=== PATIENT | female | born 1995 | race American Indian/Alaskan Native ===

== ENCOUNTER 2017-07-07 10:42 | Inpatient (IN) | payer OTHER ==
[2017-07-07] MEDS ORDERED: ZOFRAN IV ONE (11:09)
[2017-07-07] MEDS ORDERED: TORADOL IV ONE (11:09)
[2017-07-07] MEDS ORDERED: DILAUDID IV ONE ×3 (11:09→14:47)
[2017-07-07] MEDS ORDERED: DILAUDID ONE ×2 (11:26→14:51)
--- NOTE | 2017-07-07 11:33 | Emergency Department Report ---
ED Fall HPI - General Chief Complaint: Fall Stated Complaint: LEFT WRIST FRACTURE Time Seen by Provider: 07/07/17 11:01 Source: patient Mode of arrival: Ambulatory Limitations: No Limitations - History of Present Illness Initial Comments: 21-year-old female presents to the hospital status post fall [facility]. Patient ran to her left side. Patient denies LOC. Complains of pain to a whole left side with obvious deformity to left wrist. Patient is right hand dominate. Pain is rated 10/10 in intensity, worse with palpation and movement, and achy in nature. Patient was specifically complains of pain to left wrist, left ankle when L and buttock area and denies head, neck, chest or thoracic pain. - Related Data Home Medications Medication Instructions Recorded Confirmed Last Taken No Known Home Medications [No 07/07/17 07/07/17 Unknown Reported Home Medications] Allergies Allergy/AdvReac Type Severity Reaction Status Date / Time No Known Allergies Allergy Unverified 07/07/17 10:46 ED Review of Systems ROS: Stated complaint: LEFT WRIST FRACTURE Other details as noted in HPI Comment: All other systems reviewed and negative Other: Constitutional: No fevers chills Eyes: No eye pain visual changes ENT: No ear pain or throat pain Neck: Denies pain Respiratory: Denies cough wheezing shortness of breath Cardiovascular: Denies chest pain, palpitations, syncope GI: Denies nausea, vomiting, diarrhea : Denies dysuria Musculoskeletal: as per hpi Skin: Denies rash, lesions, erythema Neurologic: Denies headache, numbness, weakness Psychiatric: Denies suicidal ideation, hallucinations ED Past Medical Hx - Past Medical History Previous Medical History?: No - Surgical History Past Surgical History?: No - Social History Smoking Status: Never Smoker Substance Use Type: None - Medications Home Medications: Home Medications Medication Instructions Recorded Confirmed Last Taken Type No Known Home Medications [No 07/07/17 07/07/17 Unknown History Reported Home Medications] ED Physical Exam - General Limitations: No Limitations - Other Other exam information: General: No limitations, patient is alert in no acute distress Head exam: superfical abrasion at left forehead. no hematoma Eyes exam: Normal appearance ENT: Moist mucous membrane, normal oropharynx Neck exam: Normal inspection, full range of motion, no meningismus nontender Respiratory exam: Clear to auscultation bilateral, no wheezes, rales, crackles Cardiovascular: Normal rate and rhythm, normal heart sounds Abdomen: Soft, nondistended, and nontender, with normal bowel sounds, no rebound, or guarding Extremity: Positive deformities a left wrist. 2+ radial pulse. Full range of motion of all other extremities without pain. Patient complains of pain to left buttock and inguinal area. However, full range of motion. Back: Normal Inspection, full range of motion, no tenderness Neurologic: Alert, oriented x3, cranial nerves intact, no motor or sensory deficit Psychiatric: normal affect, normal mood Skin: Warm, dry, intact ED Course Vital Signs 07/07/17 07/07/17 07/07/17 10:46 11:15 11:30 Temperature 98.6 F Pulse Rate 84 Respiratory 18 20 20 Rate Blood Pressure 108/56 Blood Pressure [Right] O2 Sat by Pulse 100 Oximetry 07/07/17 07/07/17 07/07/17 11:49 13:43 14:55 Temperature 97.8 F Pulse Rate 89 85 Respiratory 20 11 L 18 Rate Blood Pressure Blood Pressure 134/83 133/83 [Right] O2 Sat by Pulse 99 100 Oximetry 07/07/17 15:14 Temperature Pulse Rate Respiratory 18 Rate Blood Pressure Blood Pressure [Right] O2 Sat by Pulse 100 Oximetry - Consultations Consultation #1: 07/07/17 15:06 Case was initially discussed with Dr. Snowden after diagnosis of distal radius fracture and was re-discussed after diagnosis of a proximal radial fracture. CT of the elbow recommended. Splinting and recommend admission for surgery tomorrow. Pelvic and sacral fractures are nonoperative ED Medical Decision Making - Lab Data Result diagrams: 07/07/17 11:27 07/07/17 11:27 Lab Results 07/07/17 07/07/17 07/07/17 Range/Units 11:27 11:27 11:27 WBC 11.6 H (4.5-11.0) K/mm3 RBC 4.01 (3.65-5.03) M/mm3 Hgb 10.8 (10.1-14.3) gm/dl Hct 33.5 (30.3-42.9) % MCV 84 (79-97) fl MCH 27 L (28-32) pg MCHC 32 (30-34) % RDW 16.4 H (13.2-15.2) % Plt Count 412 (140-440) K/mm3 Lymph % (Auto) 14.2 (13.4-35.0) % [place] % (Auto) 2.8 (0.0-7.3) % Eos % (Auto) 0.5 (0.0-4.3) % Baso % (Auto) 0.9 (0.0-1.8) % Lymph # 1.6 (1.2-5.4) K/mm3 [place] # 0.3 (0.0-0.8) K/mm3 Eos # 0.1 (0.0-0.4) K/mm3 Baso # 0.1 (0.0-0.1) K/mm3 Seg Neutrophils % 81.6 H (40.0-70.0) % Seg Neutrophils # 9.5 H (1.8-7.7) K/mm3 Sodium 134 L (137-145) mmol/L Potassium 3.1 L (3.6-5.0) mmol/L Chloride 97.8 L (98-107) mmol/L Carbon Dioxide 20 L (22-30) mmol/L Anion Gap 19 mmol/L BUN 11 (7-17) mg/dL Creatinine 0.7 (0.7-1.2) mg/dL Estimated GFR > 60 ml/min BUN/Creatinine Ratio 16 % Glucose 207 H (65-100) mg/dL Calcium 8.7 (8.4-10.2) mg/dL HCG, Qual Negative (Negative) - Radiology Data Radiology results: report reviewed CT abdomen and pelvis IV contrast: Nondisplaced fractures of the left pubic bone and left sacral. Left wrist x-ray: Comminuted, displaced distal left radial fracture. Left elbow x-ray: Read by me: Proximal radial head fracture with bony abnormality noted to the olecranon process CT elbow pending - Medical Decision Making Initial plan was to perform conscious sedation for distal radius reduction however, after identifying a proximal radius fracture with though recommends to splint as is and admit for surgery. Patient received multiple doses of Dilaudid , Toradol, Zofran, and by mouth potassium in the ED long arm and sugar tong splint placed by tech to immobilize fractures - Differential Diagnosis fracture, contusion, sprain, intra-abdominal injury Critical Care Time: No Critical care attestation.: If time is entered above; I have spent that time in minutes in the direct care of this critically ill patient, excluding procedure time. ED Disposition Clinical Impression: Distal radius fracture, left, Hypokalemia Fracture of radial head, left, closed Qualifiers: Encounter type: initial encounter Fracture of left pelvis Qualifiers: Encounter type: initial encounter Sacral fracture, closed Qualifiers: Encounter type: initial encounter Disposition: OP ADMIT IP TO THIS HOSP Is pt being admited?: Yes Condition: Stable Time of Disposition: 15:06 (Dr Page/hosp)
[2017-07-07] MEDS ORDERED: NACL ONE (11:57)
[2017-07-07 12:02] LABS: Basophils % (Auto) 0.9 % (0.0-1.8); Eosinophils % (Auto) 0.5 % (0.0-4.3); Hematocrit 33.5 % (30.3-42.9); Hemoglobin 10.8 gm/dl (10.1-14.3); Mean Corpuscular HGB Conc 32 % (30-34); Mean Corpuscular Hemoglobin 27 pg (28-32); Mean Corpuscular Volume 84 fl (79-97); Platelet Count 412 K/mm3 (140-440); Red Blood Count 4.01 M/mm3 (3.65-5.03); Red Cell Distribution Width 16.4 % (13.2-15.2); White Blood Count 11.6 K/mm3 (4.5-11.0)
[2017-07-07 12:12] LABS: Anion Gap 19 mmol/L; BUN/Creatinine Ratio 16; Blood Urea Nitrogen 11 mg/dL (7-17); Calcium 8.7 mg/dL (8.4-10.2); Carbon Dioxide 20 mmol/L (22-30); Chloride 97.8 mmol/L (98-107); Glucose 207 mg/dL (65-100); Potassium 3.1 mmol/L (3.6-5.0); Sodium 134 mmol/L (137-145)
[2017-07-07] MEDS ORDERED: NACL 0.9% 1000 ML 1,000 ML IV ONE (12:29)
--- NOTE | 2017-07-07 12:45 | Cat Scan Report ---
CT SCAN OF THE ABDOMEN AND PELVIS WITH CONTRAST: HISTORY: Left flank pain, left pain, fall from balcony. TECHNIQUE: Helical CT in 1.25mm intervals following IV contrast. Sagittal and coronal reconstructions. FINDINGS: Subtle nondisplaced fracture lines are identified through the left pubic bone and left sacral ala. No additional fractures are detected. The liver is normal in size and is without focal defect. No gallstones or biliary dilatation are noted. The spleen and pancreas demonstrate a normal size and attenuation with no evidence of abnormal mass. The kidneys are normal in size and position with no evidence of hydronephrosis or mass. The adrenal glands are normal. There is no intestinal obstruction or ascites. Normal appendix. The abdominal aorta is normal. The uterus and adnexa are within normal limits. There is no evidence of peritoneal air or fluid. There is no evidence of any abnormal masses or fluid collections within the pelvis. No adenopathy is identified. The bladder is normal. IMPRESSION: Nondisplaced fractures of the left pubic bone and left sacral ala. No acute visceral injury appreciated.
--- NOTE | 2017-07-07 12:50 | XRay Report ---
LEFT WRIST, 3 views: HISTORY: Pain after fall. Comminuted fracture the distal radius with 1 cm posterior displacement and 30 degrees posterior angulation is identified. No obvious intra-articular extension at the radiocarpal joint. The carpal bones and distal ulna are intact. IMPRESSION: Comminuted, displaced distal left radial fracture.
[2017-07-07] MEDS ORDERED: AMIDATE IV ONE (13:10)
[2017-07-07] MEDS ORDERED: K-DUR PO ONE (15:08)
[2017-07-07] MEDS ORDERED: TYLENOL PO PRN (15:52)
[2017-07-07] MEDS ORDERED: MORPHINE IV PRN (15:52)
[2017-07-07] MEDS ORDERED: DULCOLAX PR PRN (15:52)
[2017-07-07] MEDS ORDERED: MILK OF MAGNESIA PO PRN (15:52)
--- NOTE | 2017-07-07 15:59 | History and Physical Report ---
History of Present Illness Date of examination: 07/07/17 Date of admission: 07/07/17 Chief complaint: Chief complaint: Left elbow pain and left wrist pain after fall. #2 left hip and pelvic pain after fall History of present illness: 21-year-old -Citizen Of [place] female with no significant past medical history who lives by herself in her apartment was trying to get out of her apartment which she is on second floor. She was trying to climb out from a balcony to the ground and fell on her left side. Twisted her left foot and had a contusion injury to her left hip and left chest. Patient has severe pain in left elbow and left wrist. Pain is 10/10. Sharp in nature. No loss of consciousness. Has an abrasion on the left forehead. No lacerations. Feels dizzy sometimes. No altered sensorium. Review of System: See HPI Constitutional: no fever, no chills, no weight loss Ears, eyes, nose, mouth and throat: no nasal congestion, no nasal discharge, no sinus pressure, no vision change, no red eye. Neck: No neck pain or rigidity. Cardiovascular: No chest pain, no orthopnea, no palpitations, no leg swelling Respiratory: No shortness of breath, no cough, no congestion, no wheezing Gastrointestinal: no abdominal pain, no nausea, no vomiting Genitourinary : no dysuria, no hematuria Musculoskeletal: As in HPI. Pain to her left wrist and left elbow left pelvis and left sacral region. Pain is 10 x 10. Integumentary: no rash, no pruritis Neurological: no parathesias, no numbness, no tingling Endocrine: no cold or heat intolerance, no polyuria or polydipsia Hematologic/Lymphatic: no easy bruising, no easy bleeding, no gland swelling Allergic/Immunologic: no urticaria, no angioedema. Past History Past Medical History: No medical history Past Surgical History: No surgical history Social history: no significant social history, Lives alone, full code. denies: smoking, alcohol abuse Family history: hypertension Medications and Allergies Allergies Allergy/AdvReac Type Severity Reaction Status Date / Time No Known Allergies Allergy Unverified 07/07/17 10:46 Home Medications Medication Instructions Recorded Confirmed Last Taken Type No Known Home Medications [No 07/07/17 07/07/17 Unknown History Reported Home Medications] Active Meds: Active Medications Acetaminophen (Tylenol) 650 mg PO Q4H PRN PRN Reason: Pain MILD(1-3)/Fever >100.5/CARVER Bisacodyl (Dulcolax) 10 mg MA QDAY PRN PRN Reason: Constipation unrelieved by MOM Famotidine (Pepcid) 20 mg PO BID BEHZAD Dextrose/Sodium Chloride (D5ns) 1,000 mls @ 75 mls/hr IV DIRECT BEHZAD Magnesium Hydroxide (Milk Of Magnesia) 30 ml PO Q4H PRN PRN Reason: Constipation Morphine Sulfate (Morphine) 4 mg IV Q4H PRN PRN Reason: Pain , Severe (7-10) Ondansetron HCl (Zofran) 4 mg IV Q8H PRN PRN Reason: N/V unrelieved by Reglan Oxycodone/Acetaminophen (Percocet 5/325) 1 tab PO Q6H PRN PRN Reason: Pain, Moderate (4-6) Exam - Physical Exam Narrative exam: Patient is lying comfortably with some distress secondary to pain. - Constitutional Vitals: Temp Pulse Resp BP Pulse Ox 97.8 F 85 18 133/83 100 07/07/17 11:49 07/07/17 13:43 07/07/17 15:14 07/07/17 13:43 07/07/17 15:14 General appearance: Present: no acute distress, well-nourished - EENT Eyes: Present: PERRL ENT: hearing intact, clear oral mucosa - Neck Neck: Present: supple, normal ROM - Respiratory Respiratory effort: normal Respiratory: bilateral: CTA - Cardiovascular Heart rate: 70 Rhythm: regular Heart Sounds: Present: S1 & S2. Absent: rub, click - Extremities Extremities: no ischemia, pulses intact, pulses symmetrical, No edema Peripheral Pulses: within normal limits - Abdominal General gastrointestinal: Present: soft, non-tender, non-distended, normal bowel sounds Female genitourinary: Present: normal - Integumentary Integumentary: Present: clear, warm, dry - Musculoskeletal Musculoskeletal: strength equal bilaterally, other (decreased range of motion in left elbow and left wrist. Also range of motion painful R left hip joint.) - Psychiatric Psychiatric: appropriate mood/affect, intact judgment & insight - Neurologic Neurologic: CNII-XII intact, moves all extremities Results - Labs CBC & Chem 7: 07/07/17 11:27 07/07/17 11:27 Labs: Laboratory Last Values WBC 11.6 K/mm3 (4.5-11.0) H 07/07/17 11: RBC 4.01 M/mm3 (3.65-5.03) 07/07/17 11:27 Hgb 10.8 gm/dl (10.1-14.3) 07/07/17 11: Hct 33.5 % (30.3-42.9) 07/07/17 11: MCV 84 fl (79-97) 07/07/17 11: MCH 27 pg (28-32) L 07/07/17 11: MCHC 32 % (30-34) 07/07/17 11: RDW 16.4 % (13.2-15.2) H 07/07/17 11: Plt Count 412 K/mm3 (140-440) 07/07/17 11: Lymph % (Auto) 14.2 % (13.4-35.0) 07/07/17 11: [place] % (Auto) 2.8 % (0.0-7.3) 07/07/17 11: Eos % (Auto) 0.5 % (0.0-4.3) 07/07/17 11: Baso % (Auto) 0.9 % (0.0-1.8) 07/07/17 11: Lymph # 1.6 K/mm3 (1.2-5.4) 07/07/17 11: [place] # 0.3 K/mm3 (0.0-0.8) 07/07/17 11:27 Eos # 0.1 K/mm3 (0.0-0.4) 07/07/17 11:27 Baso # 0.1 K/mm3 (0.0-0.1) 07/07/17 11:27 Seg Neutrophils % 81.6 % (40.0-70.0) H 07/07/17 11: Seg Neutrophils # 9.5 K/mm3 (1.8-7.7) H 07/07/17 11:27 Sodium 134 mmol/L (137-145) L 07/07/17 11:27 Potassium 3.1 mmol/L (3.6-5.0) L 07/07/17 11:27 Chloride 97.8 mmol/L (98-107) L 07/07/17 11:27 Carbon Dioxide 20 mmol/L (22-30) L 07/07/17 11:27 Anion Gap 19 mmol/L 07/07/17 11:27 BUN 11 mg/dL (7-17) 07/07/17 11:27 Creatinine 0.7 mg/dL (0.7-1.2) 07/07/17 11:27 Estimated GFR > 60 ml/min 07/07/17 11:27 BUN/Creatinine Ratio 16 % 07/07/17 11:27 Glucose 207 mg/dL (65-100) H 07/07/17 11:27 Calcium 8.7 mg/dL (8.4-10.2) 07/07/17 11:27 HCG, Qual Negative (Negative) 07/07/17 11:27 Short CBC 07/07/17 Range/Units 11:27 WBC 11.6 H (4.5-11.0) K/mm3 Hgb 10.8 (10.1-14.3) gm/dl Hct 33.5 (30.3-42.9) % Plt Count 412 (140-440) K/mm3 BMP 07/07/17 11:27 Sodium 134 L Potassium 3.1 L Chloride 97.8 L Carbon Dioxide 20 L BUN 11 Creatinine 0.7 Glucose 207 H Calcium 8.7 Assessment and Plan Advance Directives: Yes (full code) VTE prophylaxis?: Chemical Plan of care discussed with patient/family: Yes - Patient Problems (1) Fracture of radial head, left, closed Current Visit: Yes Status: Acute Qualifiers: Encounter type: initial encounter Fracture alignment: F Fracture healing : F Plan to address problem: Patient may need orthopedic intervention. Ortho consulted. (2) Distal radius fracture, left Current Visit: Yes Status: Acute Qualifiers: Encounter type: E Fracture type: F Open fracture type: O Fracture morphology: F Fracture healing: F Plan to address problem: May need ORIF. We will consult Dr. Snowden (3) Fracture of left pelvis Current Visit: Yes Status: Acute Qualifiers: Encounter type: initial encounter Pelvic bone location: P Sublocation of acetabulum: S Sublocation of pubis: S Fracture type: F Fracture morphology : F Fracture alignment: F Fracture healing: F Plan to address problem: Pain management for now. Probably conservative treatment. Will defer to orthopedics. (4) Sacral fracture, closed Current Visit: Yes Status: Acute Qualifiers: Encounter type: initial encounter Zone of sacrum fracture: Z Fracture morphology: F Fracture alignment: F Fracture healing: F Plan to address problem: Fracture ofalar region , top of sacrum. Probably conservative treatment. Pain management in the meantime. Patient will need longterm facility for rehabilitation (5) DVT prophylaxis Current Visit: Yes Status: Acute Plan to address problem: Initiated on Lovenox 40 mg subcutaneous daily
[2017-07-07] MEDS ORDERED: D5NS 1,000 ML IV SCH (16:00)
--- NOTE | 2017-07-07 16:05 | XRay Report ---
FINAL REPORT PROCEDURE: XR ELBOW 3+V LT TECHNIQUE: Laterality elbow radiographs, including AP, lateral, and oblique views. CPT 85376 HISTORY: left elbow pain after fall. COMPARISON: No prior studies are available for comparison. FINDINGS: There is an irregular calcifications seen at the triceps tendon insertion on the olecranon consistent with a large avulsion fracture. This extends over approximately 2.1 centimeter x 3.6 millimeter. A separate loose body or additional fragment is seen anterior to the above-mentioned avulsion measuring 5.1 millimeters greatest diameter. There is a comminuted fracture of the radial head. A large fragment is displaced anterior aspect of the elbow measuring 2 centimeter x 9 millimeters. No other abnormalities are seen. No evidence of dislocation. IMPRESSION: Large displaced avulsion fracture and fragmentation triceps insertion on the olecranon. There is also a displaced complex fracture of the radial head with a large fragment displaced anteriorly. No evidence of dislocation.
--- NOTE | 2017-07-07 16:23 | Cat Scan Report ---
FINAL REPORT PROCEDURE: CT ELBOW WO CONTRAST LEFT TECHNIQUE: Computerized axial tomography of the LEFT elbow was performed without contrast. HISTORY: trauma, fall, left elbow fracture COMPARISON: No prior studies are available for comparison. FINDINGS: There is a comminuted displaced fracture through the radial head. There are large fragments displaced anteriorly including portions of the articular surface. Some of the fragments are rotated. There is a comminuted avulsion fracture at the insertion of the triceps tendon on the olecranon. There is also a larger fracture oriented longitudinally through the proximal end of the ulna, olecranon, medial aspect extending over 8.4 x 7.6 by 20.0 millimeters. This is mildly displaced posteriorly and medially. No other fractures are identified. No evidence of dislocation. IMPRESSION: Comminuted fractures involving the olecranon and also the radial head with rotation of fragments and displacement as described above.
[2017-07-07] MEDS: PEPCID PO SCH ×2 (17:21→21:46)
[2017-07-07] MEDS: ZOFRAN IV PRN (20:35)
[2017-07-07] MEDS: MORPHINE IV PRN ×2 (20:35→23:17)
--- NOTE | 2017-07-07 22:01 | Cat Scan Report ---
FINAL REPORT PROCEDURE: CT HEAD/BRAIN WO CON TECHNIQUE: Computerized tomography of the head was performed without contrast material. HISTORY: head ache, vomiting COMPARISON: No prior studies are available for comparison. FINDINGS: Brain: Brain density appears normal. No evidence of intracranial hemorrhage. No parenchymal hemorrhage, mass lesions or mass effect are seen. No abnormal extraxial fluid collects or masses are seen. Ventricles: Ventricles are normal size and are midline. Bone Windows: No evidence of skull fracture. Paranasal sinuses: Clear Mastoid air cells: Clear IMPRESSION: Negative examination
[2017-07-07] MEDS: PERCOCET 5/325 PO PRN (23:17)
[2017-07-08] MEDS: MORPHINE IV PRN ×3 (03:45→12:50)
[2017-07-08] MEDS: ZOFRAN IV PRN (03:46)
[2017-07-08 03:47] LABS: Basophils % (Auto) 0.3 % (0.0-1.8); Eosinophils % (Auto) 0.7 % (0.0-4.3); Hematocrit 29.8 % (30.3-42.9); Mean Corpuscular HGB Conc 34 % (30-34); Mean Corpuscular Hemoglobin 27 pg (28-32); Mean Corpuscular Volume 82 fl (79-97); Platelet Count 304 K/mm3 (140-440); Red Blood Count 3.64 M/mm3 (3.65-5.03); Red Cell Distribution Width 16.5 % (13.2-15.2); White Blood Count 5.7 K/mm3 (4.5-11.0)
[2017-07-08 03:53] LABS: Alanine Aminotransferase 16 units/L (7-56); Albumin 4.2 g/dL (3.9-5); Albumin/Globulin Ratio 1.4 %; Anion Gap 16 mmol/L; BUN/Creatinine Ratio 12; Blood Urea Nitrogen 6 mg/dL (7-17); Calcium 8.7 mg/dL (8.4-10.2); Carbon Dioxide 22 mmol/L (22-30); Chloride 101.5 mmol/L (98-107); Glucose 109 mg/dL (65-100); Potassium 3.7 mmol/L (3.6-5.0); Sodium 136 mmol/L (137-145); Total Protein 7.2 g/dL (6.3-8.2)
[2017-07-08 04:20] LABS: Alkaline Phosphatase 51 units/L (35-129)
[2017-07-08] MEDS: PEPCID PO SCH ×2 (10:05→23:18)
[2017-07-08] MEDS ORDERED: NACL 0.9% 1000 ML 1,000 ML ONE ×2 (17:31→20:26)
--- NOTE | 2017-07-08 17:34 | Anesthesia Day of Surgery ---
Anesthesia Day of Surgery - Day of Surgery Patient Examined: Yes Patient H&P Reviewed: Yes Patient is NPO: Yes
--- NOTE | 2017-07-08 17:34 | Anesthesia Consultation ---
Anesthesia Consult and Med Hx Date of service: 07/08/17 - Airway Anesthetic Teeth Evaluation: Good ROM Head & Neck: Adequate Mental/Hyoid Distance: Adequate Mallampati Class: Class I Intubation Access Assessment: Good - Pulmonary Exam CTA: Yes - Cardiac Exam Cardiac Exam: RRR - Pre-Operative Health Status ASA Pre-Surgery Classification: ASA1 Proposed Anesthetic Plan: General - Pulmonary Hx Asthma: No Hx Pneumonia: No - Central Nervous System Hx Psychiatric Problems: No
[2017-07-08] MEDS ORDERED: MARCAINE 0.5% 30 ML INFILTRATI ONE (17:41)
[2017-07-08] MEDS ORDERED: VERSED ONE (17:57)
[2017-07-08] MEDS ORDERED: SUBLIMAZE ONE ×2 (17:58→19:01)
[2017-07-08] MEDS ORDERED: DILAUDID IV ONE (18:00)
[2017-07-08] MEDS ORDERED: VERSED IV NR (18:00)
--- NOTE | 2017-07-08 18:07 | Progress Note ---
Assessment and Plan Assessment and plan: 21 yo AAF with multiple fractures post fall Assessment: 1. Displaced complex fracture left radial head 2. Large displaced fracture and fragmentation triceps insertion on the olecranon 3. Comminuted, displaced distal left radial fracture 4. Nondisplaced fracture left pubic bone and sacral ala Plan: Pain control medications, supportive care Ortho consulted and surgical procedure is planned for this afternoon 5. Obtain UDS 6. DVT prophylaxis History Interval history: c/o left arm pain, uncontrolled by meds; scheduled for surgical intervention this afternoon Hospitalist Physical - Constitutional Vitals: Temp Pulse Resp BP Pulse Ox 98.2 F 90 18 134/70 93 07/08/17 09:36 07/08/17 09:36 07/08/17 09:36 07/08/17 09:36 07/08/17 09:36 General appearance: Present: no acute distress, well-nourished - EENT Eyes: Present: PERRL, EOM intact - Neck Neck: Present: supple, normal ROM. Absent: masses or JVD - Respiratory Respiratory effort: normal Respiratory: bilateral: CTA, negative: rhonchi, wheezing - Cardiovascular Rhythm: regular Heart Sounds: Present: S1 & S2. Absent: systolic murmur - Extremities Extremities: no ischemia Extremity abnormal: other (LUE in sling) - Abdominal General gastrointestinal: soft, non-tender, non-distended, normal bowel sounds - Psychiatric Psychiatric: cooperative - Neurologic Neurologic: CNII-XII intact, no focal deficits Results - Labs CBC & Chem 7: 07/08/17 03:13 07/08/17 03:13 Labs: Laboratory Last Values WBC 5.7 K/mm3 (4.5-11.0) 07/08/17 03:13 RBC 3.64 M/mm3 (3.65-5.03) L 07/08/17 03:13 Hgb 10.0 gm/dl (10.1-14.3) L 07/08/17 03:13 Hct 29.8 % (30.3-42.9) L 07/08/17 03:13 MCV 82 fl (79-97) 07/08/17 03:13 MCH 27 pg (28-32) L 07/08/17 03:13 MCHC 34 % (30-34) 07/08/17 03:13 RDW 16.5 % (13.2-15.2) H 07/08/17 03:13 Plt Count 304 K/mm3 (140-440) 07/08/17 03:13 Lymph % (Auto) 18.4 % (13.4-35.0) 07/08/17 03:13 [place] % (Auto) 9.5 % (0.0-7.3) H 07/08/17 03:13 Eos % (Auto) 0.7 % (0.0-4.3) 07/08/17 03:13 Baso % (Auto) 0.3 % (0.0-1.8) 07/08/17 03:13 Lymph # 1.0 K/mm3 (1.2-5.4) L 07/08/17 03:13 Real # 0.5 K/mm3 (0.0-0.8) 07/08/17 03:13 Eos # 0.0 K/mm3 (0.0-0.4) 07/08/17 03:13 Baso # 0.0 K/mm3 (0.0-0.1) 07/08/17 03:13 Seg Neutrophils % 71.1 % (40.0-70.0) H 07/08/17 03:13 Seg Neutrophils # 4.0 K/mm3 (1.8-7.7) 07/08/17 03:13 Sodium 136 mmol/L (137-145) L 07/08/17 03:13 Potassium 3.7 mmol/L (3.6-5.0) 07/08/17 03:13 Chloride 101.5 mmol/L (98-107) 07/08/17 03:13 Carbon Dioxide 22 mmol/L (22-30) 07/08/17 03:13 Anion Gap 16 mmol/L 07/08/17 03:13 BUN 6 mg/dL (7-17) L 07/08/17 03:13 Creatinine 0.5 mg/dL (0.7-1.2) L 07/08/17 03:13 Estimated GFR > 60 ml/min 07/08/17 03:13 BUN/Creatinine Ratio 12 % 07/08/17 03:13 Glucose 109 mg/dL (65-100) H 07/08/17 03:13 Calcium 8.7 mg/dL (8.4-10.2) 07/08/17 03:13 Total Bilirubin 0.60 mg/dL (0.1-1.2) 07/08/17 03:13 AST 30 units/L (5-40) 07/08/17 03:13 ALT 16 units/L (7-56) 07/08/17 03:13 Alkaline Phosphatase 51 units/L (35-129) 07/08/17 03:13 Total Protein 7.2 g/dL (6.3-8.2) 07/08/17 03:13 Albumin 4.2 g/dL (3.9-5) 07/08/17 03:13 Albumin/Globulin Ratio 1.4 % 07/08/17 03:13 HCG, Qual Negative (Negative) 07/07/17 11:27
[2017-07-08] MEDS ORDERED: XYLOCAINE MPF 2% ONE (19:01)
[2017-07-08] MEDS ORDERED: DIPRIVAN 10 MG/ML IV ONE (19:01)
[2017-07-08] MEDS ORDERED: ANCEF ONE (19:54)
[2017-07-08] MEDS ORDERED: DECADRON ONE (20:00)
[2017-07-08] MEDS ORDERED: ZOFRAN ONE (20:00)
[2017-07-08] MEDS ORDERED: DILAUDID ONE ×2 (20:02→21:42)
[2017-07-08] MEDS ORDERED: NACL 0.9% IR ONE (22:00)
--- NOTE | 2017-07-08 22:47 | Procedure Note ---
Date of procedure: 07/08/17 Pre-op diagnosis: displaced fracture left distal radius and comminuted fracture left radial h Post-op diagnosis: same Procedure: 1. Open reduction internal fixation left distal radius 2. Open reduction left radial Fracture with radial head replacement Indications A 21-year-old female who sustained multiple fractures involving the left upper extremity and pelvis after falling from a second floor balcony. She sustained a displaced fracture of the left distal radius as well as a comminuted radial head fracture Operative procedure She was brought to the OR after being given a scalene nerve block for postop pain management in preop holding. She was placed on the operating table supine following an intubation and induction the patient's left upper extremity was prepped and draped in the usual sterile manner. A timeout procedure was done to identify the patient and the correct operative sites. The distal radius was approached first using a volar incision centered over the distal radius this is taken down sharply through skin and subcutaneous base flexor carpi radialis tendon was identified and retracted The fracture fragments could be palpated through the quadratus muscle using a periosteal elevator the soft tissue were debrided from the volar surface the fracture was identified and was manipulated into a more reduced position a K wire was used for temporary fixation. Next a Biomet locked plate was applied to the volar surface this was followed by securing the plate(locked screws of various lengths and lateral x-rays were obtained and showed good reduction of the fracture and placement of all hardware The wound was copiously irrigated and was closed in a standard routine fashion. The comminuted radial head fracture was approached next using a lateral incision centered over the lateral epicondyles of the distal humerus was carried down distally towards the proximal radial shaft the incision was then developed and carried down distally the fascia and capsule overlying the radial head was incised the fracture was identified again she had a severely comminuted radial head. This was removed without complications smaller bony fragments were also removed from the medial aspect of the radial capitellar joint. Using a small oscillating saw the remaining portion of the proximal radius was resected this is followed by reaming and broaching to a #8 stem trial sizing was begun. the radial head Measured 22 mm and diameter. The trial components were inserted and the elbow was reduced and taken through a range of motion. Following the trial sizing the final components were assembled and were inserted into the proximal radius care was taken to insert and the proper alignment with the forearm in neutral radial head replacement was inserted and was taken through a range of motion again it was appeared stable in addition a AP and lateral x-ray was obtained showing good placement of the radial head implant. Next the wound was copiously irrigated and was closed in a standard routine fashion. Dressings were applied as well as a well-padded posterior mold with the elbow flexed 100. She tolerated the procedure there were no complications she was sent to postanesthesia recovery in a stable condition Anesthesia: GETA Surgeon: CORNELIUS CHAIREZ (Ada Jin 1st conservation assistant) Estimated blood loss: minimal Pathology: list (left radial head Fragments) Specimen disposition: to lab Condition: stable Disposition: PACU
[2017-07-08] MEDS ORDERED: SODIUM CHLORIDE FLUSH SYRINGE 10 ML IV NR (23:00)
[2017-07-09] MEDS: DILAUDID IV PRN ×6 (00:54→19:38)
[2017-07-09 04:35] LABS: Urine Drugs of Abuse Note Disclamer
[2017-07-09 04:46] LABS: Bacteria,Urine 3+ /HPF (Negative); Bilirubin,Urine NEG (Negative); Blood,Urine NEG (Negative); Ketones,Urine 20 mg/dL (Negative); Leukocyte Esterase,Urine TR (Negative); Mucus,Urine FEW /HPF; Nitrite,Urine NEG (Negative); Protein,Urine <15 mg/dL mg/dL (Negative); Urobilinogen,Urine < 2.0 mg/dL (<2.0)
--- NOTE | 2017-07-09 06:23 | Post Anesthesia Evaluation ---
- Post Anesthesia Evaluation Patient Participated: Yes Airway Patent: Yes Stable Respiratory Function: Yes Temp > 96.8F: Yes Pain Manageable: Yes Adequeate Hydration: Yes Anesthesia Complications: No
--- NOTE | 2017-07-09 09:19 | XRay Report ---
LEFT ELBOW, 2 VIEWS History: Open reduction and internal fixation of a left radial head fracture, intraoperative films. Findings: 2 fluoroscopic images of the left elbow were obtained during surgery. The images demonstrate left radial head replacement. Alignment is anatomic. Soft tissue swelling and gas are noted. Impression: Left radial head prosthesis placement as described. Please correlate with procedural report by Dr. Snowden if needed.
--- NOTE | 2017-07-09 09:20 | XRay Report ---
LEFT WRIST, 2 VIEWS History: Open reduction and internal fixation of a distal left radial fracture, intraoperative films. Findings: 2 fluoroscopic images of the left wrist were obtained during surgery which demonstrate internal fixation of the comminuted distal radial fracture. Alignment is near-anatomic. Soft tissue swelling and gas are noted. Swiss: Open reduction and internal fixation of the distal radial fracture. Please correlate with the procedural report by Dr. Snowden if needed.
--- NOTE | 2017-07-09 10:36 | Progress Note ---
Subjective Date of service: 07/09/17 Interval history: 1st POD after ORIF of left radius Patient is in the bed, relatively comfortable. Pain is mostly controlled with pain meds. Ambulated well. No nausea or vomiting. Block receding appropriately. No anesthesia complications Objective - Constitutional Vitals: Vital Signs - 12hr 07/08/17 07/08/17 07/08/17 22:38 22:45 22:50 Temperature 97.6 F Pulse Rate 97 H 93 H 95 H Respiratory 16 21 17 Rate Blood Pressure 147/90 145/97 148/97 O2 Sat by Pulse 100 100 100 Oximetry 07/08/17 07/08/17 07/08/17 22:55 23:10 23:25 Temperature 98.4 F Pulse Rate 85 86 83 Respiratory 14 17 16 Rate Blood Pressure 152/99 138/89 130/93 O2 Sat by Pulse 100 100 100 Oximetry 07/08/17 07/09/17 07/09/17 23:53 04:12 07:05 Temperature 98.2 F 98.1 F 97.8 F Pulse Rate 81 83 98 H Respiratory 18 18 20 Rate Blood Pressure 135/93 127/84 116/73 O2 Sat by Pulse 100 100 100 Oximetry 07/09/17 09:17 Temperature Pulse Rate Respiratory 20 Rate Blood Pressure O2 Sat by Pulse Oximetry - Labs CBC & Chem 7: 07/08/17 03:13 07/08/17 03:13 Labs: Abnormal lab results 07/09/17 Range/Units 03:18 Urine WBC (Auto) 32.0 H (0.0-6.0) /HPF
[2017-07-09] MEDS: PEPCID PO SCH ×2 (10:47→21:55)
--- NOTE | 2017-07-09 13:20 | Progress Note ---
Assessment and Plan s/p ORIF left distal radius and radial head replacement doing ok continue physical therapy and observation Subjective Date of service: 07/09/17 Interval history: doing ok, no c/o's noted family members in room.... Objective Vital signs: Vital Signs - 12hr 07/09/17 07/09/17 07/09/17 04:12 07:05 09:17 Temperature 98.1 F 97.8 F Pulse Rate 83 98 H Respiratory 18 20 20 Rate Blood Pressure 127/84 116/73 O2 Sat by Pulse 100 100 Oximetry 07/09/17 07/09/17 09:47 12:44 Temperature Pulse Rate Respiratory 14 24 Rate Blood Pressure O2 Sat by Pulse Oximetry - Labs CBC & BMP: 07/08/17 03:13 07/08/17 03:13 Labs: Abnormal lab results 07/09/17 Range/Units 03:18 Urine WBC (Auto) 32.0 H (0.0-6.0) /HPF
--- NOTE | 2017-07-09 16:37 | Progress Note ---
Assessment and Plan Assessment and plan: 21 yo AAF with multiple fractures post fall Assessment: 1. Displaced complex fracture left radial head 2. Large displaced fracture and fragmentation triceps insertion on the olecranon 3. Comminuted, displaced distal left radial fracture 4. Nondisplaced fracture left pubic bone and sacral ala Plan: Pain control medications, supportive care Ortho consulted and underwent ORIF left proximal and distal radial fractures 5. Drug use UDS positive for marijuana and benzodiazepines Patient admits to smoking marijuana, but denies any benzodiazepine use Counselled 6. DVT prophylaxis 7. Given the history she provides, the nature of her trauma, the positive UDS with patient denying BZ use and the unusual family dynamic, will consult risk management History Interval history: Status post ORIF left radius, pain controlled Hospitalist Physical - Constitutional Vitals: Temp Pulse Resp BP Pulse Ox 97.8 F 98 H 20 116/73 100 07/09/17 07:05 07/09/17 07:05 07/09/17 15:44 07/09/17 07:05 07/09/17 07:05 General appearance: Present: no acute distress - EENT Eyes: Present: PERRL, EOM intact - Neck Neck: Present: supple, normal ROM. Absent: masses or JVD - Respiratory Respiratory effort: normal Respiratory: bilateral: CTA, negative: rhonchi, wheezing - Cardiovascular Rhythm: regular Heart Sounds: Present: S1 & S2. Absent: systolic murmur - Extremities Extremities: no ischemia, abnormal (L arm dressing and sling in place) - Abdominal General gastrointestinal: soft, non-tender, non-distended, normal bowel sounds - Neurologic Neurologic: CNII-XII intact, no focal deficits Results - Labs CBC & Chem 7: 07/08/17 03:13 07/08/17 03:13 Labs: Laboratory Last Values WBC 5.7 K/mm3 (4.5-11.0) 07/08/17 03:13 RBC 3.64 M/mm3 (3.65-5.03) L 07/08/17 03:13 Hgb 10.0 gm/dl (10.1-14.3) L 07/08/17 03:13 Hct 29.8 % (30.3-42.9) L 07/08/17 03:13 MCV 82 fl (79-97) 07/08/17 03:13 MCH 27 pg (28-32) L 07/08/17 03:13 MCHC 34 % (30-34) 07/08/17 03:13 RDW 16.5 % (13.2-15.2) H 07/08/17 03:13 Plt Count 304 K/mm3 (140-440) 07/08/17 03:13 Lymph % (Auto) 18.4 % (13.4-35.0) 07/08/17 03:13 [place] % (Auto) 9.5 % (0.0-7.3) H 07/08/17 03:13 Eos % (Auto) 0.7 % (0.0-4.3) 07/08/17 03:13 Baso % (Auto) 0.3 % (0.0-1.8) 07/08/17 03:13 Lymph # 1.0 K/mm3 (1.2-5.4) L 07/08/17 03:13 [place] # 0.5 K/mm3 (0.0-0.8) 07/08/17 03:13 Eos # 0.0 K/mm3 (0.0-0.4) 07/08/17 03:13 Baso # 0.0 K/mm3 (0.0-0.1) 07/08/17 03:13 Seg Neutrophils % 71.1 % (40.0-70.0) H 07/08/17 03:13 Seg Neutrophils # 4.0 K/mm3 (1.8-7.7) 07/08/17 03:13 Sodium 136 mmol/L (137-145) L 07/08/17 03:13 Potassium 3.7 mmol/L (3.6-5.0) 07/08/17 03:13 Chloride 101.5 mmol/L (98-107) 07/08/17 03:13 Carbon Dioxide 22 mmol/L (22-30) 07/08/17 03:13 Anion Gap 16 mmol/L 07/08/17 03:13 BUN 6 mg/dL (7-17) L 07/08/17 03:13 Creatinine 0.5 mg/dL (0.7-1.2) L 07/08/17 03:13 Estimated GFR > 60 ml/min 07/08/17 03:13 BUN/Creatinine Ratio 12 % 07/08/17 03:13 Glucose 109 mg/dL (65-100) H 07/08/17 03:13 Calcium 8.7 mg/dL (8.4-10.2) 07/08/17 03:13 Total Bilirubin 0.60 mg/dL (0.1-1.2) 07/08/17 03:13 AST 30 units/L (5-40) 07/08/17 03:13 ALT 16 units/L (7-56) 07/08/17 03:13 Alkaline Phosphatase 51 units/L (35-129) 07/08/17 03:13 Total Protein 7.2 g/dL (6.3-8.2) 07/08/17 03:13 Albumin 4.2 g/dL (3.9-5) 07/08/17 03:13 Albumin/Globulin Ratio 1.4 % 07/08/17 03:13 HCG, Qual Negative (Negative) 07/07/17 11:27 Urine Color Yellow (Yellow) 07/09/17 03:18 Urine Turbidity Clear (Clear) 07/09/17 03:18 Urine pH 6.0 (5.0-7.0) 07/09/17 03:18 Ur Specific [place] 1.011 (1.003-1.030) 07/09/17 03:18 Urine Protein <15 mg/dl mg/dL (Negative) 07/09/17 03:18 Urine Glucose (UA) 50 mg/dL (Negative) 07/09/17 03:18 Urine Ketones 20 mg/dL (Negative) 07/09/17 03:18 Urine Blood Neg (Negative) 07/09/17 03:18 Urine Nitrite Neg (Negative) 07/09/17 03:18 Urine Bilirubin Neg (Negative) 07/09/17 03:18 Urine Urobilinogen < 2.0 mg/dL (<2.0) 07/09/17 03:18 Ur Leukocyte Esterase Tr (Negative) 07/09/17 03:18 Urine WBC (Auto) 32.0 /HPF (0.0-6.0) H 07/09/17 03:18 Urine RBC (Auto) 2.0 /HPF (0.0-6.0) 07/09/17 03:18 U Epithel Cells (Auto) 3.0 /HPF (0-13.0) 07/09/17 03:18 Urine Bacteria (Auto) 3+ /HPF (Negative) 07/09/17 03:18 Urine Mucus Few /HPF 07/09/17 03:18 Urine Opiates Screen Presumptive negative 07/09/17 03:18 Urine Methadone Screen Presumptive negative 07/09/17 03:18 Ur Barbiturates Screen Presumptive negative 07/09/17 03:18 Ur Phencyclidine Scrn Presumptive negative 07/09/17 03:18 Ur Amphetamines Screen Presumptive negative 07/09/17 03:18 U Benzodiazepines Scrn Presumptive positive 07/09/17 03:18 Urine Cocaine Screen Presumptive negative 07/09/17 03:18 U Marijuana (THC) Screen Presumptive positive 07/09/17 03:18 Drugs of Abuse Note Disclamer 07/09/17 03:18
[2017-07-10] MEDS: DILAUDID IV PRN ×4 (00:16→20:29)
--- NOTE | 2017-07-10 10:09 | Progress Note ---
Assessment and Plan Assessment and plan: 21 yo AAF with multiple fractures post fall Assessment: 1. Displaced complex fracture left radial head 2. Large displaced fracture and fragmentation triceps insertion on the olecranon 3. Comminuted, displaced distal left radial fracture 4. Nondisplaced fracture left pubic bone and sacral ala Plan: Pain control medications, supportive care Ortho consulted and underwent ORIF left proximal and distal radial fractures PT today 5. Drug use UDS positive for marijuana and benzodiazepines Patient admits to smoking marijuana, but denies any benzodiazepine use Counselled 6. DVT prophylaxis 7. Given the history she provides, the nature of her trauma, the positive UDS with patient denying BZ use and the unusual family/friends dynamic, will consult risk management History Interval history: Status post ORIF left radius 07/08; PT today Hospitalist Physical - Constitutional Vitals: Temp Pulse Resp BP Pulse Ox 98.4 F 78 14 100/70 100 07/10/17 08:00 07/10/17 08:00 07/10/17 08:00 07/10/17 08:00 07/10/17 05:09 General appearance: Present: no acute distress - EENT Eyes: Present: PERRL, EOM intact - Neck Neck: Present: supple, normal ROM. Absent: masses or JVD - Respiratory Respiratory effort: normal Respiratory: bilateral: CTA, negative: rhonchi, wheezing - Cardiovascular Rhythm: regular Heart Sounds: Present: S1 & S2. Absent: systolic murmur - Extremities Extremities: no ischemia - Abdominal General gastrointestinal: soft, non-tender, non-distended, normal bowel sounds - Psychiatric Psychiatric: cooperative - Neurologic Neurologic: CNII-XII intact, no focal deficits Results - Labs CBC & Chem 7: 07/08/17 03:13 07/08/17 03:13 Labs: Laboratory Last Values WBC 5.7 K/mm3 (4.5-11.0) 07/08/17 03:13 RBC 3.64 M/mm3 (3.65-5.03) L 07/08/17 03:13 Hgb 10.0 gm/dl (10.1-14.3) L 07/08/17 03:13 Hct 29.8 % (30.3-42.9) L 07/08/17 03:13 MCV 82 fl (79-97) 07/08/17 03:13 MCH 27 pg (28-32) L 07/08/17 03:13 MCHC 34 % (30-34) 07/08/17 03:13 RDW 16.5 % (13.2-15.2) H 07/08/17 03:13 Plt Count 304 K/mm3 (140-440) 07/08/17 03:13 Lymph % (Auto) 18.4 % (13.4-35.0) 07/08/17 03:13 [place] % (Auto) 9.5 % (0.0-7.3) H 07/08/17 03:13 Eos % (Auto) 0.7 % (0.0-4.3) 07/08/17 03:13 Baso % (Auto) 0.3 % (0.0-1.8) 07/08/17 03:13 Lymph # 1.0 K/mm3 (1.2-5.4) L 07/08/17 03:13 [place] # 0.5 K/mm3 (0.0-0.8) 07/08/17 03:13 Eos # 0.0 K/mm3 (0.0-0.4) 07/08/17 03:13 Baso # 0.0 K/mm3 (0.0-0.1) 07/08/17 03:13 Seg Neutrophils % 71.1 % (40.0-70.0) H 07/08/17 03:13 Seg Neutrophils # 4.0 K/mm3 (1.8-7.7) 07/08/17 03:13 Sodium 136 mmol/L (137-145) L 07/08/17 03:13 Potassium 3.7 mmol/L (3.6-5.0) 07/08/17 03:13 Chloride 101.5 mmol/L (98-107) 07/08/17 03:13 Carbon Dioxide 22 mmol/L (22-30) 07/08/17 03:13 Anion Gap 16 mmol/L 07/08/17 03:13 BUN 6 mg/dL (7-17) L 07/08/17 03:13 Creatinine 0.5 mg/dL (0.7-1.2) L 07/08/17 03:13 Estimated GFR > 60 ml/min 07/08/17 03:13 BUN/Creatinine Ratio 12 % 07/08/17 03:13 Glucose 109 mg/dL (65-100) H 07/08/17 03:13 Calcium 8.7 mg/dL (8.4-10.2) 07/08/17 03:13 Total Bilirubin 0.60 mg/dL (0.1-1.2) 07/08/17 03:13 AST 30 units/L (5-40) 07/08/17 03:13 ALT 16 units/L (7-56) 07/08/17 03:13 Alkaline Phosphatase 51 units/L (35-129) 07/08/17 03:13 Total Protein 7.2 g/dL (6.3-8.2) 07/08/17 03:13 Albumin 4.2 g/dL (3.9-5) 07/08/17 03:13 Albumin/Globulin Ratio 1.4 % 07/08/17 03:13 HCG, Qual Negative (Negative) 07/07/17 11:27 Urine Color Yellow (Yellow) 07/09/17 03:18 Urine Turbidity Clear (Clear) 07/09/17 03:18 Urine pH 6.0 (5.0-7.0) 07/09/17 03:18 Ur Specific [place] 1.011 (1.003-1.030) 07/09/17 03:18 Urine Protein <15 mg/dl mg/dL (Negative) 07/09/17 03:18 Urine Glucose (UA) 50 mg/dL (Negative) 07/09/17 03:18 Urine Ketones 20 mg/dL (Negative) 07/09/17 03:18 Urine Blood Neg (Negative) 07/09/17 03:18 Urine Nitrite Neg (Negative) 07/09/17 03:18 Urine Bilirubin Neg (Negative) 07/09/17 03:18 Urine Urobilinogen < 2.0 mg/dL (<2.0) 07/09/17 03:18 Ur Leukocyte Esterase Tr (Negative) 07/09/17 03:18 Urine WBC (Auto) 32.0 /HPF (0.0-6.0) H 07/09/17 03:18 Urine RBC (Auto) 2.0 /HPF (0.0-6.0) 07/09/17 03:18 U Epithel Cells (Auto) 3.0 /HPF (0-13.0) 07/09/17 03:18 Urine Bacteria (Auto) 3+ /HPF (Negative) 07/09/17 03:18 Urine Mucus Few /HPF 07/09/17 03:18 Urine Opiates Screen Presumptive negative 07/09/17 03:18 Urine Methadone Screen Presumptive negative 07/09/17 03:18 Ur Barbiturates Screen Presumptive negative 07/09/17 03:18 Ur Phencyclidine Scrn Presumptive negative 07/09/17 03:18 Ur Amphetamines Screen Presumptive negative 07/09/17 03:18 U Benzodiazepines Scrn Presumptive positive 07/09/17 03:18 Urine Cocaine Screen Presumptive negative 07/09/17 03:18 U Marijuana (THC) Screen Presumptive positive 07/09/17 03:18 Drugs of Abuse Note Disclamer 07/09/17 03:18
[2017-07-10] MEDS: PEPCID PO SCH ×2 (11:33→21:52)
[2017-07-10] MEDS: PERCOCET 5/325 PO PRN ×2 (11:58→17:40)
--- NOTE | 2017-07-10 12:56 | Progress Note ---
Assessment and Plan doing well will dc to home with f/u appointment in 1 wk Subjective Date of service: 07/10/17 Interval history: doing well with PT, minimal c/o's noted family members in room Objective Vital signs: Vital Signs - 12hr 07/10/17 07/10/17 07/10/17 04:32 05:09 08:00 Temperature 98.6 F 98.4 F Pulse Rate 99 H 78 Respiratory 18 17 14 Rate Blood Pressure 120/80 Blood Pressure 100/70 [Right] O2 Sat by Pulse 100 Oximetry 07/10/17 07/10/17 11:58 12:07 Temperature Pulse Rate Respiratory 16 16 Rate Blood Pressure 116/75 Blood Pressure [Right] O2 Sat by Pulse Oximetry - Labs CBC & BMP: 07/08/17 03:13 07/08/17 03:13
[2017-07-11] MEDS: PERCOCET 5/325 PO PRN ×3 (00:43→17:30)
[2017-07-11] MEDS: DILAUDID IV PRN ×2 (03:32→08:32)
[2017-07-11] MEDS: PEPCID PO SCH (08:32)
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
[2017-07-11 17:44] VITALS: BP 112/77
== END 2017-07-11 18:50 | disposition home or self-care (01) | DRG 511 ==
LOC: EEVIPCON 10:42 → ED 10:42 → 3A 15:52 → 3B-SURG 07-08 00:04
PROVIDERS: ADMIT Internal Medicine; ATTEND Internal Medicine
PROC: 0PSJ04Z Reposition Left Radius with Internal Fixation Device, Open Approach (ICD-10-PCS; principal; 2017-07-08)
PROC: 0PSJ04Z Reposition Left Radius with Internal Fixation Device, Open Approach (ICD-10-PCS; 2017-07-08)
DX: S52.122A Displaced fracture of head of left radius, initial encounter for closed fracture (principal); S32.10XA Unspecified fracture of sacrum, initial encounter for closed fracture; S32.592A Other specified fracture of left pubis, initial encounter for closed fracture; S52.502A Unspecified fracture of the lower end of left radius, initial encounter for closed fracture; S70.02XA Contusion of left hip, initial encounter; S52.022A Displaced fracture of olecranon process without intraarticular extension of left ulna, initial encounter for closed fracture; S20.212A Contusion of left front wall of thorax, initial encounter; W17.89XA Other fall from one level to another, initial encounter; Y93.39 Activity, other involving climbing, rappelling and jumping off; Y92.038 Other place in apartment as the place of occurrence of the external cause; Y99.8 Other external cause status
CPT/HCPCS: 36415; 70450; 74177; 80048; 80053; 80307; 81001; 84703; 85025; 87086; 88305; 88309; 88311; 96361; 96374; 96375; 99285; C1713; J0690; J1100; J1170; J1885; J2250; J2270; J2405; J2704; J3010; J7030; J7042; L8699; Q9966

== ENCOUNTER 2018-01-02 11:46 | Day surgery (SDC) | payer OTHER ==
[~2018-01-02 11:46] MED LIST: ANCEF/STERILE WATER 2 GM/20 ML IV NR; LACTATED RINGERS 1,000 ML IV SCH; VERSED IV NR
--- NOTE | 2018-01-02 13:04 | Anesthesia Day of Surgery ---
Anesthesia Day of Surgery - Day of Surgery Patient Examined: Yes Patient H&P Reviewed: Yes Patient is NPO: Yes
--- NOTE | 2018-01-02 13:04 | Anesthesia Consultation ---
Anesthesia Consult and Med Hx Date of service: 01/02/18 - Airway Anesthetic Teeth Evaluation: Good ROM Head & Neck: Adequate Mental/Hyoid Distance: Adequate Mallampati Class: Class I Intubation Access Assessment: Good - Pulmonary Exam CTA: Yes - Cardiac Exam Cardiac Exam: RRR - Pre-Operative Health Status ASA Pre-Surgery Classification: ASA1 Proposed Anesthetic Plan: General (GA with LMA ok, No GERD) - Pulmonary Hx Smoking: No Hx Asthma: No Hx Pneumonia: No Hx Sleep Apnea: No (LACIE PRE SCREEN NEGATIVE) - Cardiovascular System Hx Hypertension: No - Central Nervous System Hx Psychiatric Problems: No - Hematic Hx Anemia: Yes - Other Systems Hx Cancer: No
[2018-01-02] MEDS ORDERED: ZOFRAN IV PRN (13:05)
[2018-01-02 13:34] LABS: Hematocrit 35.2 % (30.3-42.9); Hemoglobin 11.1 gm/dl (10.1-14.3)
[2018-01-02] MEDS ORDERED: SUBLIMAZE ONE ×2 (13:41→14:41)
[2018-01-02] MEDS ORDERED: DIPRIVAN 10 MG/ML IV ONE (13:41)
[2018-01-02] MEDS ORDERED: ZOFRAN ONE (13:41)
[2018-01-02] MEDS ORDERED: TRIPLE ANTIBIOTIC TP ONE (13:44)
[2018-01-02] MEDS ORDERED: VERSED ONE (13:52)
[2018-01-02] MEDS ORDERED: XYLOCAINE MPF 2% ONE (14:00)
[2018-01-02] MEDS ORDERED: NACL 0.9% IR ONE (14:24)
--- NOTE | 2018-01-02 14:24 | Post Anesthesia Evaluation ---
- Post Anesthesia Evaluation Patient Participated: Yes Airway Patent: Yes Stable Respiratory Function: Yes Nausea/Vomiting: No Temp > 96.8F: Yes Pain Manageable: Yes Adequeate Hydration: Yes Anesthesia Complications: No
[2018-01-02] MEDS ORDERED: MARCAINE 0.5% INFILTRATI ONE ×2 (14:52→14:53)
[2018-01-02] MEDS: DILAUDID IV PRN ×4 (15:20→15:52)
--- NOTE | 2018-01-02 15:20 | Procedure Note ---
Date of procedure: 01/02/18 Pre-op diagnosis: hardware irritation left wrists Post-op diagnosis: same Procedure: Removal of hardware left distal radius Procedure The patient was brought to the OR placed in the OR table in supine position following induction and intubation by anesthesia the patient's left upper extremity was prepped and draped in the usual sterile manner a timeout procedure was done to identify the patient and the correct operative site. Using the previous incision this was taken down sharply through skin and subcutaneous the flexor carpi radialis tendon was identified and retracted Using a periosteal elevator the scar tissue overlying the distal radius was removed exposing the distal radius plate following removal of the scar and capsule overlying the distal radius locking plate's screwdrivers were used to remove the screws from both the distal portion near the articular surface as well as the proximal locking screws in the distal radius care was taken to manipulate the patient's forearm and elbow this was done to increase supination which after 3-4 months of physical therapy was still lacking we were able to feel and hear lysis of adhesion C-arm was brought in the distal forearm was examined. Did not appear to be any fracture or remaining retained hardware. Next the wound was copiously irrigated and was closed in a standard routine fashion. Dressings were applied the patient tolerated the procedure there were no complications. Anesthesia: MAC Estimated blood loss: minimal Condition: stable Disposition: PACU
[2018-01-02] MEDS ORDERED: NORCO 5/325 PO PRN (16:06)
[2018-01-02 17:03] VITALS: BP 127/82
--- NOTE | 2018-01-03 08:12 | XRay Report ---
INTRAOPERATIVE LEFT WRIST RADIOGRAPH INDICATION: Left wrist hardware irritation, removal of plates and screws on left distal radius. COMPARISON: 07/08/2017. FINDINGS: Intraoperative fluoroscopic guidance provided. One AP intraoperative final image submitted. It demonstrates interval hardware removal with residual lucencies and distal radius deformity. Bony detail though limited. CONCLUSION: Intraoperative fluoroscopic guidance provided, as described. Thank you for the opportunity to participate in this patient's care.
== END 2018-01-02 17:05 | disposition home or self-care (01) ==
LOC: OR 11:46
PROVIDERS: ATTEND Orthopaedic Surgery
DX: T84.89XA Other specified complication of internal orthopedic prosthetic devices, implants and grafts, initial encounter (principal); Y83.1 Surgical operation with implant of artificial internal device as the cause of abnormal reaction of the patient, or of later complication, without mention of misadventure at the time of the procedure
CPT/HCPCS: 20680; 36415; 73100; 81025; 85014; 85018; 88300; J0690; J1170; J2250; J2405; J2704; J3010; J7120; 88302; A6250